=== PATIENT | male | born 1975 | race Caucasian/White ===

== ENCOUNTER → 2025-03-21 | Day surgery (SDC) | payer OTHER ==
[~2025-03-21] MED LIST: PROPOFOL 10 MG/ML 20 ML VIAL IV ONE
[2025-03-21] MEDS: IV FLUID CONTINUATION 1,000 ML IV ONE (09:43)
[2025-03-21] MEDS: LACTATED RINGERS 1,000 ML IV SCH (09:43)
[2025-03-21 09:44] VITALS: TEMP 98
--- NOTE | 2025-03-21 10:54 | P.PCN ---
Date of Procedure: 03/21/25 Procedure(s) Performed: BRIEF HISTORY: Patient is a 49-year-old pleasant white male scheduled for an elective colonoscopy as a part of screening for colon cancer. PROCEDURE PERFORMED: Colonoscopy with biopsy. PREOPERATIVE DIAGNOSIS: Screening for colon cancer. IV sedation per Anesthesia. PROCEDURE: After informed consent was obtained, the patient, was brought into the endoscopy unit. IV sedation was administered by Anesthesia under continuous monitoring. Digital rectal examination was normal. Initially the Olympus CF-160 flexible video colonoscope was then inserted in the rectum, gradually advanced into the cecum without any difficulty. Careful examination was performed as the scope was gradually being withdrawn. Ileocecal valve and the appendiceal orifice were visualized and appeared normal. Prep was fair.. Mucosa of the cecum, ascending colon, transverse colon, appeared normal. The descending colon there was a 5 mm polyp that was removed by cold biopsy. Rest of the descending colon, sigmoid colon, and rectum appeared normal. Retroflexion was performed in the rectum and no lesions were seen. The patient tolerated the procedure well. IMPRESSION: 4 mm ascending colon polyp status post cold biopsy Rest of the colon appeared normal RECOMMENDATIONS: Findings of this examination were discussed with the patient as well as his family.. He was advised to follow the biopsy results. If the biopsy reveals adenoma he can have repeat colonoscopy in 5 years.
[2025-03-21 11:17] VITALS: BP 148/65; PULSE 70; RESP 16
== END ==
LOC: ORWHC2ENDO 09:04
PROVIDERS: ATTEND Internal Medicine Gastroenterology
DX: Z12.11 Encounter for screening for malignant neoplasm of colon (principal); D12.4 Benign neoplasm of descending colon; I10 Essential (primary) hypertension; E07.9 Disorder of thyroid, unspecified; F32.A Depression, unspecified; Z79.890 Hormone replacement therapy; Z79.899 Other long term (current) drug therapy
CPT/HCPCS: 88305; 45380; J2704